=== PATIENT | male | born 1985 ===

== ENCOUNTER 2024-04-16 08:18 | Outpatient (AMB) | payer OTHER, SELFPAY ==
--- NOTE | 2024-04-16 08:31 | AM.OFFWIN_ITS ---
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 He states his was sick 1st and then both of his kids got sick, everyone tested negative for strep and got better without antibiotics. Now he has the sore throat x 1 week, he feels it on the right side of his throat more than the left side of his throat and he also has right-sided ear pain and postnasal drip. He denies any head congestion or fevers or nausea or vomiting or diarrhea. He is tried DayQuil, Vicks and throat spray and it seems to work on and off. [facility] Social History Patient Tobacco Use Status: Former Tobacco user Review of Systems Const All systems reviewed & are unremarkable except as noted in HPI and below Physical Exam Vital Signs: Last Vital Signs Temp 97.6 F 04/16/24 08:33 Pulse 70 04/16/24 08:33 BP 140/90 H 04/16/24 08:33 Pulse Ox 99 04/16/24 08:33 Oxygen Delivery Method Room Air 04/16/24 08:33 BMI result Body Mass Index 28.6 Const General: cooperative, healthy appearing, comfortable and no acute distress Orientation/consciousness: patient oriented x3 Limitations: no limitations HEENT Head: Yes normal to inspection Ears: external ears normal and TM's normal bilaterally General nose exam: Normal external nose present, Normal nares present and No nasal discharge present Face and sinus: Yes normal facial exam and Yes sinuses nontender Mouth: Normal oral and palatal mucosa present and moist mucous membranes Throat: Yes tonsils normal, Yes uvula midline and Yes posterior oropharynx abnormal (Erythema) Eyes General: appearance normal, both eyes and all related structures Neck Neck: Yes normal visual inspection Resp Effort & Inspection: normal respiratory effort, able to speak in complete sentences, Actively coughing, no respiratory distress, not tachypneic, no tripod positioning and no use of accessory muscles Skin General skin exam: no rashes or lesions noted Neuro General: patient oriented x3 Extrem General: Yes normal to inspection and Yes no clubbing, cyanosis or edema Results AMB Rapid Strep AMB Rapid Strep Negative Last Edit by ADAN Keyes on 04/16/24 09:0 3 Assessment & Plan Assessment & Plan (1) URI (upper respiratory infection): Code(s): J06.9 - Acute upper respiratory infection, unspecified Qualifiers: URI type: unspecified viral URI Qualified Code(s): J06.9 - Acute upper respiratory infection, unspecified Plan: Advised treat symptoms with OTC medications. Follow up with PCP if no feeling better in the coming days. Plan see above Coding Level of Care Code Est Pt Level 3 (00283) Diagnoses Viral upper respiratory tract infection J06.9 URI type: unspecified viral URI
[2024-04-16 08:33] VITALS: BP 140/90; PULSE 70; TEMP 36.4; O2SAT 99; BMI 28.6
== END 2024-04-16 09:09 | disposition home or self-care (01) ==
PROVIDERS: PCP Nurse Practitioner Adult Health; Visit Provider Physician Assistant
DX: J06.9 Acute upper respiratory infection, unspecified (principal)
CPT/HCPCS: 87880; 99213